=== PATIENT | female | born 2000 | race Caucasian/White ===

== ENCOUNTER 2022-08-31 08:30 | Emergency (ER) | payer MEDICAID, OTHER, SELFPAY ==
[2022-08-31] MEDS ORDERED: Dexamethasone 20 MG/5 ML VIAL ONE (08:56)
== END 2022-08-31 09:30 | disposition home or self-care (01) ==
LOC: NAV ERS 08:30
DX: J02.9 Acute pharyngitis, unspecified (principal)
CPT/HCPCS: 87430; 96372; 99283; J1100